=== PATIENT | male | born 1995 | race Caucasian/White ===

== ENCOUNTER 2024-07-15 09:52 | Outpatient (CLI) | payer OTHER, BC, SELFPAY | END 2024-07-15 09:53 | disposition home or self-care (01) | LOC: MRI 09:54 | PROVIDERS: Visit Provider Physician Assistant | DX: M25.521 Pain in right elbow (principal); S46.211A Strain of muscle, fascia and tendon of other parts of biceps, right arm, initial encounter | CPT/HCPCS: 73221 ==